=== PATIENT | female | born 1955 | race Caucasian/White ===

== ENCOUNTER → 2016-08-10 | Outpatient (CLI) | payer OTHER, MEDICAID ==
--- NOTE | 2016-08-10 10:59 | DX ---
Bilateral femurs, 4 views each side. HISTORY: Bilateral thigh pain. FINDINGS: The femurs are normal in appearance bilaterally, without evidence of fracture or periostiti s. Hip joint spaces appear symmetric and normal. IMPRESSION: Unremarkable bilateral femur radiographs.
--- NOTE | 2016-08-10 11:01 | DX ---
Bilateral knees, 5 views each side. HISTORY: Bilateral knee pain. FINDINGS: Both knees are normal in appearance. Joint spaces are maintained, and normal alignment is p resent. No fracture or joint effusion bilaterally. IMPRESSION: 1. Unremarkable bilateral knee radiographs.
== END ==
LOC: FIMAGING 09:23
PROVIDERS: ATTEND Registered Nurse
DX: M25.561 Pain in right knee (principal); M25.562 Pain in left knee; M79.604 Pain in right leg; M79.605 Pain in left leg

== ENCOUNTER → 2016-09-12 | Outpatient (CLI) | payer OTHER, MEDICAID | LOC: FCPNEURO 22:55 | PROVIDERS: ATTEND Student in an Organized Health Care Education/Training Program | DX: G47.33 Obstructive sleep apnea (adult) (pediatric) (principal); G47.31 Primary central sleep apnea; G47.36 Sleep related hypoventilation in conditions classified elsewhere ==

== ENCOUNTER → 2016-12-03 | Outpatient (CLI) | payer OTHER ==
[~2016-12-03] MED LIST: GADOBUTROL 10 ML VIAL IVP ONE
== END ==
LOC: FIMAGING 07:50
PROVIDERS: ATTEND Neurological Surgery
DX: M51.36 Other intervertebral disc degeneration, lumbar region (principal); M51.37 Other intervertebral disc degeneration, lumbosacral region; G95.9 Disease of spinal cord, unspecified; M48.54XA Collapsed vertebra, not elsewhere classified, thoracic region, initial encounter for fracture; M54.9 Dorsalgia, unspecified; K62.89 Other specified diseases of anus and rectum
CPT/HCPCS: 72156; 72157; 72158; A9585

== ENCOUNTER → 2016-12-21 | Outpatient (CLI) | payer OTHER | LOC: FIMAGING 11:11 | PROVIDERS: ATTEND Internal Medicine | DX: Z13.820 Encounter for screening for osteoporosis (principal); M85.80 Other specified disorders of bone density and structure, unspecified site ==

== ENCOUNTER 2017-01-14 18:27 | Emergency (ER) | payer OTHER ==
[2017-01-14 18:35] VITALS: PULSE 79; TEMP 98.1; O2SAT 94
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
[2017-01-14 20:28] VITALS: BP 145/79; RESP 16
== END 2017-01-14 20:28 | disposition home or self-care (01) ==
LOC: EDUNIT#
DX: S00.83XA Contusion of other part of head, initial encounter (principal); J45.909 Unspecified asthma, uncomplicated; F17.200 Nicotine dependence, unspecified, uncomplicated; Y04.0XXA Assault by unarmed brawl or fight, initial encounter; Y99.8 Other external cause status; Y93.89 Activity, other specified

== ENCOUNTER → 2017-01-28 | Outpatient (CLI) | payer OTHER | LOC: FIMAGING 07:19 | PROVIDERS: ATTEND Internal Medicine | DX: J98.4 Other disorders of lung (principal); F17.210 Nicotine dependence, cigarettes, uncomplicated ==

== ENCOUNTER → 2017-02-11 | Outpatient (CLI) | payer OTHER | LOC: FIMAGING 10:06 | PROVIDERS: ATTEND Psychiatry & Neurology Neurology | DX: D32.9 Benign neoplasm of meninges, unspecified (principal); S09.90XA Unspecified injury of head, initial encounter; Y04.8XXA Assault by other bodily force, initial encounter | CPT/HCPCS: 70543; 70551; A9585 ==

== ENCOUNTER → 2017-02-15 | Outpatient (CLI) | payer OTHER | LOC: FIMAGING 12:27 | PROVIDERS: ATTEND Internal Medicine | DX: Z12.2 Encounter for screening for malignant neoplasm of respiratory organs (principal); K76.0 Fatty (change of) liver, not elsewhere classified; Z87.891 Personal history of nicotine dependence; Z85.028 Personal history of other malignant neoplasm of stomach; Z85.841 Personal history of malignant neoplasm of brain ==

== ENCOUNTER 2017-06-07 06:31 | Inpatient (IN) | payer OTHER, MEDICAID ==
[2017-06-07] MEDS ORDERED: CEFUROXIME 1,500 MG in NS 50 ML IV ONE (06:39)
[2017-06-07] MEDS ORDERED: LR 1,000 ML IV ONE (06:40)
[2017-06-07] MEDS ORDERED: GADOBUTROL 10 ML VIAL IVP ONE (06:41)
--- NOTE | 2017-06-07 06:51 | PDANEPAE ---
ANE History of Present Illness presents for craniotomy for tumor excision - left frontal meningioma ANE Past Medical History - Cardiovascular History Hx Hypertension: No Hx Arrhythmias: Yes Hx Chest Pain: No Hx Coronary Artery / Peripheral Vascular Disease: No Hx CHF / Valvular Disease: Yes Cardiovascular History Comment: intermittent PAC'S - Pulmonary History Hx COPD: No Hx Asthma/Reactive Airway Disease: No Hx Recent Upper Respiratory Infection: No Hx Oxygen in Use at Home: No Hx Sleep Apnea: No Sleep Apnea Screening Result - Last Documented: Positive Pulmonary History Comment: SMOKES A PACK A DAY. - Neurologic History Hx Cerebrovascular Accident: No Hx Seizures: No Hx Dementia: No - Endocrine History Hx Diabetes: No Obesity: no Endocrine History Comment: HYPOTHYROID - Renal History Hx Renal Disorders: No - Liver History Hx Hepatic Disorders: Yes Hepatic History Comment: FATTY LIVER - Neurological & Psychiatric Hx Hx Neurological and Psychiatric Disorders: Yes Neurological / Psychiatric History Comment: DEPRESSION - Cancer History Hx Cancer: No Cancer History Comment: METAPLASIA IN STOMACH - Congenital Disorder History Hx Congenital Disorders: No - GI History GERD: severe Hx Gastrointestinal Disorders: Yes Gastrointestinal History Comment: SEVERE REFLUX, INTERMITTENT IBS - Other Health History Other Health History: LOW IRON - Chronic Pain History Chronic Pain: Yes - Surgical History Prior Surgeries: benjie 2014 ANE Review of Systems Review of systems is: negative Review of Systems: - Exercise capacity METS (RN): 4 METS ANE Patient History - Allergies Allergies/Adverse Reactions: meperidine HCl [From Demerol] Allergy (Severe, Verified 01/14/17 18:33) Other-Enter Comments morphine [Morphine] Allergy (Severe, Verified 01/14/17 18:33) Other-Enter Comments Sulfa (Sulfonamide Antibiotics) Allergy (Severe, Verified 01/14/17 18:33) Rash levorphanol Allergy (Mild, Verified 04/17/17 18:22) VOMITING/DIARRHEA metronidazole [From Flagyl] Allergy (Mild, Verified 01/14/17 18:33) Penicillins Allergy (Unknown, Verified 01/14/17 18:33) Rash methadone Allergy (Verified 06/07/17 06:54) - Home Medications Home medications: home medication list seen and reviewed Home Medications: DULoxetine [Cymbalta] 30 mg PO HS 12/16/13 [Last Taken 06/06/17] Multivitamins [Multivitamin (*)] 1 each PO DAILY 12/16/13 [Last Taken 06/01/17] [place]-3 Fatty Acids [Fish Oil 1000 mg (*)] 1,000 mg PO DAILY 12/16/13 [Last Taken 06/02/17] Diazepam [Valium 10 MG (*)] 10 mg PO HS 01/16/14 [Last Taken 01/17/14] Nicotine [Nicoderm Cq 21 mg (*)] 21 mg TD DAILY 01/16/14 [Last Taken 06/06/17] Albuterol Hfa Anes Only [Proair Hfa Icu (*)] 2 puffs IH DAILY PRN 04/17/17 [ Last Taken Unknown] Buprenorphine HCl [Belbuca] 75 mcg SL BID 04/17/17 [Last Taken 06/06/17] Dexlansoprazole [Dexilant] 60 mg PO DAILY 04/17/17 [Last Taken 06/06/17] Diazepam [Valium 5 MG (*)] 5 mg PO DAILY AT 2PM 04/17/17 [Last Taken 06/06/17] Dicyclomine [Bentyl 10 MG (*)] 20 mg PO QID 04/17/17 [Last Taken 06/06/17] Herbals/Supplements -Info Only 1 ea PO DAILY 04/17/17 [Last Taken 05/31/17] Ketorolac Tromethamine [KETOROLAC TROMETHAMINE] 60 mg IM Q7D 04/17/17 [Last Taken 05/24/17] Levothyroxine [Synthroid 150 mcg (*)] 150 mcg PO DAILY06 04/17/17 [Last Taken ] OLANZapine [OLANZapine (*)] 1.7 mg PO DAILY 04/17/17 [Last Taken 06/06/17] Ondansetron Odt [Zofran Odt 4 mg (*)] 4 mg PO Q4 PRN 04/17/17 [Last Taken ] Promethazine HCl [Phenergan 25mg (*)] 25 mg PO DAILY PRN 04/17/17 [Last Taken ] oxyCODONE IR [Oxycodone Ir (*)] 5 mg PO 15 04/17/17 [Last Taken 06/07/17] oxyCODONE IR [Oxycodone Ir (*)] 15 mg PO 04/17/17 [Last Taken 06/07/17] oxyCODONE IR [Oxycodone Ir (*)] 30 mg PO ,04/17/17 [Last Taken 06/07/17] - Anes Hx Anes Hx: no prior problems - Smoking Hx Smoking Status: Current every day smoker - Family Anes Hx Family Hx Anesthesia Complications: none ANE Labs/Vital Signs - Labs Result Diagrams: 06/07/17 06:39 06/07/17 06:39 - Vital Signs Height: 167.64 cm Weight: 74.843 kg ANE Physical Exam - Airway Neck exam: FROM Mallampati Score: Class 2 Mouth exam: dentures - Pulmonary Pulmonary: no respiratory distress - Cardiovascular Cardiovascular: regular rate and rhythym - ASA Status ASA Status: III ANE Anesthesia Plan Anesthesia Plan: general endotracheal anesthesia Lines/Monitors: arterial line Urgent/Emergent Case: Guero fragoso completed preop but documented later for safe timely pt care
[2017-06-07] MEDS ORDERED: BUPIVACAINE 0.25% 30 ML SDV ONE (09:11)
[2017-06-07] MEDS ORDERED: BACITRACIN ZINC 14.2 GM OINTTUBE TP ONE (09:11)
[2017-06-07] MEDS ORDERED: GENTAMICIN SULFATE 80 MG/2 ML VIAL ONE ×2 (09:11→11:44)
[2017-06-07] MEDS ORDERED: AVITENE POWDER 1 GM JAR TP ONE (09:11)
[2017-06-07] MEDS ORDERED: POVIDONE-IODINE 30 GM OINTTUBE TP ONE (09:14)
[2017-06-07] MEDS ORDERED: THROMBIN (BOVINE) 5,000 UNIT VIAL TP ONE (09:14)
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
[2017-06-07] MEDS ORDERED: fentaNYL 100 MCG/2 ML INJ ONE ×6 (09:22→13:41)
[2017-06-07] MEDS ORDERED: ROCURONIUM 100 MG/10 ML VIAL ONE ×2 (09:25→12:00)
[2017-06-07] MEDS ORDERED: PROPOFOL/EMULSION 500 MG/50 ML BOTTLE IV ONE ×2 (09:26→11:33)
[2017-06-07] MEDS ORDERED: PROPOFOL 200 MG/20 ML VIAL ONE ×2 (09:26→10:14)
[2017-06-07] MEDS ORDERED: LIDOCAINE 2% 5 ML SDV ONE (09:27)
[2017-06-07] MEDS ORDERED: REMIFENTANIL HCL 1 MG VIAL ONE ×2 (09:28→11:21)
[2017-06-07] MEDS ORDERED: NS IV ONE (09:30)
[2017-06-07] MEDS ORDERED: NICARDIPINE IV ONE (09:30)
[2017-06-07 10:16] LABS: % IMMATURE GRANULYOCYTES 0.3 % (0.0-1.1); ABSOLUTE IMMATURE GRANULOCYTES 0.02 10^3/uL (0.00-0.10); ADD DIFF? NO; ADD MORPH? NO; ADD SCAN? NO; ATYPICAL LYMPHOCYTE FLAG 0 (0-99); FRAGMENT RBC FLAG 0 (0-99); HEMATOCRIT 40.6 % (38.0-47.0); LEFT SHIFT FLG 0 (0-99); LIPEMIA HEMOLYSIS FLAG 90 (0-99); MEAN CELL HEMOGLOBIN 30.8 pg (27.9-34.1); MEAN CELL HEMOGLOBIN CONCENTR. 34.5 g/dL (32.4-36.7); MEAN CELL VOLUME 89.2 fL (81.5-99.8); MEAN PLATELET VOLUME 9.6 fL (8.7-11.7); PLATELET CLUMPS FLAG 10 (0-99); PLATELET COUNT 262 10^3/uL (150-400); RED BLOOD CELL COUNT 4.55 10^6/uL (4.18-5.33); RED CELL DISTRIBUTION WIDTH 14.4 % (11.5-15.2)
[2017-06-07 10:34] LABS: ANION GAP 14 mEq/L (8-16); CARBON DIOXIDE 22 mEq/l (22-31); CHLORIDE 105 mEq/L (97-110); CREATININE 0.8 mg/dL (0.6-1.0); GLOMERULAR FILTRATION RATE > 60; GLUCOSE 101 mg/dL (70-100); POTASSIUM 4.1 mEq/L (3.5-5.2); SODIUM 141 mEq/L (134-144)
[2017-06-07] MEDS ORDERED: HYDROmorphONE/DILAUDID 2 MG/ML INJ ONE (10:34)
[2017-06-07 10:37] LABS: APTT 29.9 SEC (23.0-38.0); INR 1.02 (0.83-1.16); PROTIME(PATIENT) 13.3 SEC (12.0-15.0)
[2017-06-07] MEDS ORDERED: fentaNYL 250 MCG/5 ML INJ ONE (10:52)
[2017-06-07] MEDS ORDERED: MANNITOL 20% 100 GM/500 ML BAG IV ONE (11:40)
[2017-06-07] MEDS ORDERED: ONDANSETRON 4 MG/2 ML VIAL IVP PRN ×2 (12:36→12:57)
[2017-06-07] MEDS ORDERED: fentaNYL 100 MCG/2 ML INJ IVP PRN (12:36)
[2017-06-07] MEDS ORDERED: NALOXONE HCL 0.4 MG/ML INJ IVP PRN (12:36)
[2017-06-07] MEDS ORDERED: LABETALOL HCL 50 MG/10 ML SYR IVP PRN (12:36)
[2017-06-07] MEDS ORDERED: NS 500 ML IV PRN (12:36)
[2017-06-07] MEDS ORDERED: ACETAMINOPHEN 500 MG TAB PO PRN (12:36)
[2017-06-07] MEDS ORDERED: HYDROmorphONE/DILAUDID 1 MG/ML INJ IVP PRN (12:36)
[2017-06-07] MEDS ORDERED: ALBUTEROL 3 ML DEYVIAL IH PRN (12:36)
[2017-06-07] MEDS ORDERED: ALBUTEROL 200 PUFFS/18 GM MDI IH PRN (12:54)
[2017-06-07] MEDS ORDERED: BISACODYL 10 MG SUPP PR PRN (12:57)
[2017-06-07] MEDS ORDERED: MAGNESIUM HYDROXIDE 30 ML UDCUP PO PRN (12:57)
[2017-06-07] MEDS ORDERED: PROMETHAZINE HCL 25 MG/ML INJ IVP PRN (12:57)
[2017-06-07] MEDS ORDERED: niCARdipine/NACL 200 ML IV PRN (12:57)
[2017-06-07] MEDS ORDERED: LACTULOSE 20 GM/30 ML UDCUP PO PRN (12:57)
[2017-06-07] MEDS ORDERED: ACETAMINOPHEN 325 MG TAB PO PRN (12:57)
[2017-06-07] MEDS ORDERED: MAG HYDROX/AL HYDROX/SIMETH 30 ML UDCUP PO PRN (12:57)
[2017-06-07] MEDS ORDERED: POLYETHYLENE GLYCOL 3350 17 GM PKT PO PRN (12:57)
[2017-06-07] MEDS ORDERED: *MD ORDERING ONLY-DEXAMETHASONE TAPER IVP/PO SCH (13:15)
[2017-06-07] MEDS ORDERED: LABETALOL HCL 50 MG/10 ML SYR ONE (13:16)
--- NOTE | 2017-06-07 13:36 | POSTOPPROG ---
Post Op Note Date of Operation: 06/07/17 Surgeon: Joan Pepe Beadworker: Eli Rodriguez PA-C Anesthesia: GET(General Endotracheal) Pre-op Diagnosis: Brain mass Post-op Diagnosis: Brain mass Procedure: Craniotomy for resection of brain mass Inf/Abcess present in the surg proc area at time of surgery?: No Depth: Deep Incisional (Fascial) EBL: 50-100 Plan Plan: 61 yo female s/p left craniotomy for resection of brain mass, preliminary path is meningioma - neuro checks every hour - maintain SBP < 140 - keppra x 1 week - decadron taper as ordered - GRANT drain subgaleal, maintain compression - PT/OT - postop MRI brain in am Exam Awake. Alert. PERRL Following commands Strength full at 5/5 Sensation intact
[2017-06-07] MEDS ORDERED: HYDROmorphONE/DILAUDID 1 MG/ML INJ ONE (13:41)
[2017-06-07] MEDS: HYDROmorphONE/DILAUDID 1 MG/ML INJ IVP PRN ×2 (14:54→17:54)
--- NOTE | 2017-06-07 15:31 | ASMTCMCOM ---
CM Note CM Note Notes: Patient admitted for brain tumor resection; she is s/p L craniotomy and recovering in the ICU. PT/OT evals are ordered and pending, and she is having q1hr neuro checks. Caroline García, patient's cousin, is her MDPOA. Her discharge needs are TBD at this time. CM will follow. Date Signed: 06/07/2017 03:31 PM Electronically Signed By:Tia Ramos RN
[2017-06-07] MEDS: DICYCLOMINE 10 MG CAP PO SCH ×2 (15:41→23:11)
--- NOTE | 2017-06-07 15:51 | POSTANESTH ---
Post Anesthetic Evaluation Cardiovascular Status: Normal, Stable Respiratory Status: Normal, Stable Level of Consciousness/Mental Status: Can Participate in Eval Pain Control: Adequate, Prn Tx Ordered Nausea/Vomiting Control: Adequate, Prn Tx Ordered Complications Possibly Related to Anesthesia: None Noted
[2017-06-07] MEDS: NS W/ 20 KCl/L 1,000 ML IV SCH (16:58)
[2017-06-07] MEDS: DEXAMETHASONE 4 MG/ML VIAL IVP SCH (17:51)
[2017-06-07] MEDS: CEFUROXIME 1,500 MG in NS 50 ML IV SCH (17:51)
--- NOTE | 2017-06-07 17:57 | GOP ---
[f rep st] OPERATIVE REPORT DATE OF OPERATION: 06/07/2017 SURGEON: Joan Pepe DO NEUROSURGEON: Joan Pepe D.O. MARKETING PROJECT MANAGER: Eli Rodriguez P.A.-C. PREOPERATIVE DIAGNOSIS: Right frontal meningioma. POSTOPERATIVE DIAGNOSIS: Right frontal meningioma. PROCEDURE PERFORMED: Bicoronal craniotomy flap, right frontal craniotomy, resection of meningioma. FINDINGS: SPECIMENS: To pathology. Prelim path is benign meningioma. ESTIMATED BLOOD LOSS: 100 mL. INDICATIONS: This is a 61-year-old female with a large right frontal meningioma, who was offered alexy atment options. Elected to move forward with surgical resection. DESCRIPTION OF PROCEDURE: She was identified. Consented. Sites were marked. Brought to the operating room. Anesthetized under general endotracheal tube anesthesia. The head was placed in a P[place]it hea d aragon to 80 pounds of pressure. Her stealth stereotactic scan was registered to the Stealth frame, and the bifrontal incision was marked using the preoperative plan. Hair was clipped with the OR clip pers. She was prepped and draped in the usual sterile fashion. Incision was anesthetized with 0.5% Ma rcaine with epinephrine. Incision was made with a 10 blade. Hemostasis was obtained with Deepa clips and bipolar cautery. We d issected through the temporalis fascia with the Bovie and then reflected the flap anteriorly, elevati ng the periosteum with the periosteal elevator and placing a scalp flap under the flap before retract ing it back to a Anne bar. We then marked the midline both stereotactically and otherwise, and appro ximately 2 cm off midline posteriorly marked a juliana hole posterior to the tumor and marked out anteri or and posterior tumor margins based on the preoperative plan. We then performed a 14 mm juliana hole an d waxed this. We then, with the router, extended this in a semicircular fashion out laterally, removi ng the bone flap. We then placed dural tack-up stitches using the wire pass and 4-0 Nurolon. Then rec hecking that we had an appropriate opening lateral to the tumor, we tented the dura up with 4-0 Nurol on, opened it with a 15 blade, and then extended this with an 11 blade. As we began to reflect the du ra more medially, it became very apparent that the tumor capsule was not well defined as one would ty pically expect and was very, very adherent to the underlying brain. Staying on the tumor capsule side, we coagulated the arachnoid and cut with micro scissors, and then opened the tumor capsule sending biopsy. Then using this SONOPET to core out the center of the tumor capsule, we then circumferentially began to resect capsule from brain. Again, this was exceedingly ad herent so there was some obvious cortical disruption from the tumor. There were no draining veins or feeding vessels that were taken at this point. As we got more medial, we did get some cerebral edema. This was treated effectively with mannitol, and by closure the brain was supple again. Once we had c ored out the center and completely resected the tumor capsule, with the exception of along the superi or dural margin along the sagittal sinus, we then used the stealth to verify we had resected all the tumor as well as direct visualization. We then coagulated the dura underneath 2 cm leading up to the superior sagittal sinus, but did not coagulate the sinus using stealth to verify this. We then copiously irrigated with gentamicin infused saline. Once meticulous hemostasis had been obtai roxanna with Gelfoam and Avitene, we then laid Surgicel down along the brain, as I said the brain was rel axed again. Prior to closing, we replace the dura with DuraGen and replaced the bone flap with a Synt hes plate and 5 mm screws. We then copiously irrigated with another liter of gentamicin infused salin e, trocar to drain out posteriorly placed in the sub galea space. Closed the temporalis fascia with 2 -0 Vicryl pop-offs. The galea, which was not high quality given that she was a smoker, was closed wit h 2-0 Vicryl pop-offs. The skin was closed with 3-0 running nylon. The wound was dressed with bacitra david and Telfa stapled down. Removed from the [place] head well puller. Tolerated the procedure well. FLUIDS REPLACED: 2.5 L crystalloid and 50 of mannitol. URINE OUTPUT: Not recorded. DRAINS: One J-P in the subgaleal space to bulb suction. COMPLICATIONS: Not technically a complication; however, tumor was particularly adherent to brain cau sing some mild cortical contusion when the capsule and some cerebral edema, which did reso lve with mannitol. /[id number]/MODL
[2017-06-07] MEDS: Buprenorphine Hcl [Belbuca] 75 MCG SL SCH (18:25)
[2017-06-07] MEDS ORDERED: DULoxetine 20 MG CAP PO SCH (21:00)
[2017-06-07] MEDS: DIAZEPAM 5 MG TAB PO PRN (21:44)
[2017-06-07] MEDS: SENNOSIDES/DOCUSATE SODIUM TAB PO SCH (21:44)
[2017-06-07] MEDS: levETIRAcetam 500 MG TAB PO SCH (21:44)
[2017-06-07] MEDS: DULoxetine 30 MG CAP PO SCH (21:48)
--- NOTE | 2017-06-07 21:48 | GCON ---
[f rep st] CONSULTATION [employer] AGENT CONSULTATION. DATE OF CONSULTATION: 06/07/2017 REASON FOR ADMISSION: Status post craniotomy. HISTORY OF PRESENT ILLNESS: The patient is a 61-year-old, white female with a past medical history i ncluding chronic pain, hypothyroidism, tobacco abuse. She was examined postoperatively preceding a c raniotomy for resection of a mass felt to be a meningioma. She is currently resting comfortably, but somewhat somnolent. All history is gleaned from the medical record. Prior to surgery, she was comp laining of nausea. PAST MEDICAL HISTORY: Includes hypothyroidism, chronic pain, stomach cancer, asthma, depression, anx iety. ALLERGIES: Extensive allergies, including meperidine, morphine, sulfa, Flagyl, penicillin. MEDICATIONS: At home include atenolol, levothyroxine, Cymbalta, multivitamins, Valium, Nexium, NicoD erm, Ultram, baclofen, Dilaudid, Ultram, Zyprexa. SOCIAL HISTORY: A current smoker. Her family is at the bedside. She has good family support. PHYSICAL EXAM: VITAL SIGNS: Blood pressure is 134/73, pulse 76, respirations 12. She is afebrile. Oxygen saturation 93% on 3 L. GENERAL: She is a mildly overweight, 61-year-old, white female who i s resting comfortably in no acute distress. HEENT: Eyes are PERRLA, EOMI. Throat shows no erythema or tonsillar hypertrophy. NECK: Supple. There is no cervical adenopathy. HEART: Regular rate an d rhythm with a 2/6 systolic murmur at left sternal border without radiation. LUNGS: Diminished indu ath sounds. Mild prolongation of expiratory phase, but there is no wheeze. ABDOMEN: Soft, nontende r. Bowel sounds are present. EXTREMITIES: No clubbing, cyanosis, or edema. LABORATORIES: White count 6.5, hemoglobin 14, hematocrit 40, platelet count 262. INR is 1.02. Sodi um 141, potassium 4.1, chloride 105, CO2 is 22, BUN 11, creatinine 0.8, glucose is 101. IMPRESSION: 1. Status post craniotomy for removal of a tumor felt to be a meningioma. 2. Chronic pain. 3. History of asthma. 4. Hypothyroidism. 5. Anxiety and depression. RECOMMENDATIONS: 1. Adequate pain control. 2. DVT and PE prophylaxis. Holding anticoagulation for now. 3. Stress ulcer prophylaxis. 4. PT and OT. /[id number]/MODL
[2017-06-07] MEDS: DICYCLOMINE 20 MG TAB PO SCH (21:49)
[2017-06-07] MEDS: oxyCODONE IR 15 MG TAB PO PRN (21:52)
[2017-06-07] MEDS: OLANZapine 5 MG TAB PO SCH (21:53)
[2017-06-08] MEDS: DEXAMETHASONE 4 MG/ML VIAL IVP SCH ×3 (00:21→12:04)
[2017-06-08] MEDS: CEFUROXIME 1,500 MG in NS 50 ML IV SCH (02:10)
[2017-06-08] MEDS: NS W/ 20 KCl/L 1,000 ML IV SCH (02:16)
[2017-06-08 03:57] LABS: % IMMATURE GRANULYOCYTES 0.3 % (0.0-1.1); ABSOLUTE IMMATURE GRANULOCYTES 0.03 10^3/uL (0.00-0.10); ADD DIFF? NO; ADD MORPH? NO; ADD SCAN? NO; ATYPICAL LYMPHOCYTE FLAG 0 (0-99); FRAGMENT RBC FLAG 0 (0-99); HEMATOCRIT 38.2 % (38.0-47.0); HEMOGLOBIN 12.8 g/dL (12.6-16.3); LEFT SHIFT FLG 0 (0-99); LIPEMIA HEMOLYSIS FLAG 80 (0-99); MEAN CELL HEMOGLOBIN 30.7 pg (27.9-34.1); MEAN CELL HEMOGLOBIN CONCENTR. 33.5 g/dL (32.4-36.7); MEAN CELL VOLUME 91.6 fL (81.5-99.8); MEAN PLATELET VOLUME 9.8 fL (8.7-11.7); PLATELET CLUMPS FLAG 0 (0-99); PLATELET COUNT 264 10^3/uL (150-400); RED BLOOD CELL COUNT 4.17 10^6/uL (4.18-5.33); RED CELL DISTRIBUTION WIDTH 14.6 % (11.5-15.2)
[2017-06-08 04:36] LABS: ANION GAP 10 mEq/L (8-16); CALCIUM 8.1 mg/dL (8.5-10.4); CARBON DIOXIDE 22 mEq/l (22-31); CHLORIDE 112 mEq/L (97-110); CREATININE 0.7 mg/dL (0.6-1.0); GLOMERULAR FILTRATION RATE > 60; GLUCOSE 137 mg/dL (70-100); POTASSIUM 4.3 mEq/L (3.5-5.2); SODIUM 144 mEq/L (134-144)
[2017-06-08] MEDS: DICYCLOMINE 20 MG TAB PO SCH ×4 (05:55→20:14)
[2017-06-08] MEDS: LEVOTHYROXINE 150 MCG TAB PO SCH (05:55)
[2017-06-08] MEDS: oxyCODONE IR 15 MG TAB PO PRN (06:11)
[2017-06-08] MEDS ORDERED: oxyCODONE IR 15 MG TAB PO PRN ×2 (07:33→15:39)
--- NOTE | 2017-06-08 07:37 | NEUSURGPN ---
Date of Surgery: 06/07/17 Post Op Day: 1 Assessment/Plan: Assessment: 61 yo female s/p left craniotomy for resection of brain mass, preliminary path is meningioma POD #1 Plan: -neuro checks every 1-2 hrs -maintain SBP < 140 -pt feeling fine this am except for her ongoing rectal pain that she takes 15- 30 mg of Oxycodone 2-3 times per day-written for this medication -keppra x 1 week -decadron taper as ordered -GRANT drain subgaleal, maintain compression -PT/OT -postop MRI brain pending this am -warning signs given -call NS with any changes or issues Subjective: No new complaints or concerns. No f/c/n/v/d. No neck/chest/abd or gu complaints. Objective: Awake. Alert. PERRLA EOMI no droop Following commands Strength full at 5/5 Sensation intact Neuro Check Frequency: per routine Urinary Catheter in Place: No - Physician Discussed Patient with : My Neurosurgery Physical Exam - Vitals, I&O, Labs I and O 06/07/17 06/08/17 06/09/17 05:59 05:59 05:59 Intake Total 4115 Output Total 2890 Balance 1225 Weight 74.843 kg Intake: Oral (ml) 120 IV Intake (ml) 2600 IV Infused (ml) 1395 Cefuroxime 1,500 mg In Ns 50 50 ml @ 200 mls/hr IV ONCALL ONE Rx#:[id number] NS W/ 20 KCl/L 1,000 ml @ 1345 100 mls/hr IV CONT ESTELLA Rx#:[id number] Output: Urine (ml) 2650 Catheter 2650 Estimated Blood Loss (ml) 100 GRANT Drain Output (ml) 140 Head Tariq Ordonez 140 Vital Signs Temp Pulse Resp BP Pulse Ox 36.6 C 91 19 124/66 H 92 06/08/17 04:00 06/08/17 06:00 06/08/17 06:00 06/08/17 06:00 06/08/17 06:00 Laboratory Results 06/08/17 03:50 06/08/17 03:50 ICD10 Worksheet Patient Problems: Problems Problem Status Onset Chest pain at rest Acute Coronary atherosclerosis Acute Gastroenteritis Acute Hiatal hernia with obstruction but no gangrene Acute
[2017-06-08] MEDS: levETIRAcetam 500 MG TAB PO SCH ×2 (08:08→20:14)
[2017-06-08] MEDS: MULTIVITAMINS 1 EACH TAB PO SCH (08:09)
[2017-06-08] MEDS: SENNOSIDES/DOCUSATE SODIUM TAB PO SCH ×2 (08:09→20:14)
[2017-06-08] MEDS: NICOTINE 21 MG/24 HR PATCH TD SCH (08:10)
--- NOTE | 2017-06-08 08:40 | PDINTPN ---
Farm Crew Member Progress Note Assessment/Plan: Assessment: * Status post craniotomy for meningioma * Chronic pain * Asthma * Hypothyroid * Anxiety depression Plan: [employer] Continue pain control PT/OT Out of bed Subjective: Resting comfortably. Pain currently controlled. Objective: Vital Signs Temp Pulse Resp BP Pulse Ox 36.6 C 91 19 124/66 H 92 06/08/17 04:00 06/08/17 06:00 06/08/17 06:00 06/08/17 06:00 06/08/17 06:00 Laboratory Results 06/08/17 03:50 06/08/17 03:50 06/07/17 06/08/17 06/09/17 05:59 05:59 05:59 Intake Total 4115 Output Total 2890 Balance 1225 PT 13.3 SEC (12.0-15.0) 06/07/17 06:39 INR 1.02 (0.83-1.16) 06/07/17 06:39 Physical Exam - Physical Exam General Appearance: WD/WN, alert, no apparent distress EENT: PERRL/EOMI Neck: non-tender, supple Respiratory: chest non-tender, lungs clear, normal breath sounds Cardiac/Chest: normal peripheral pulses, regular rate, rhythm Peripheral Pulses: 2+: carotid (R), carotid (L), femoral (R), femoral (L), dorsalis-pedis (R), dorsalis-pedis (L) Abdomen: normal bowel sounds, non-tender, soft Pelvic Exam: deferred Rectal: deferred Skin: normal color Extremities: normal range of motion, non-tender, normal inspection, normal capillary refill Neuro/Psych: alert ICD10 Worksheet Patient Problems: Problems Problem Status Onset Chest pain at rest Acute Coronary atherosclerosis Acute Gastroenteritis Acute Hiatal hernia with obstruction but no gangrene Acute
[2017-06-08] MEDS ORDERED: OLANZapine 5 MG TAB PO SCH (09:00)
[2017-06-08] MEDS ORDERED: PANTOPRAZOLE SODIUM 40 MG TAB PO SCH ×2 (09:00→21:00)
[2017-06-08] MEDS ORDERED: GADOBUTROL 10 ML VIAL IVP ONE (09:47)
[2017-06-08] MEDS: Buprenorphine Hcl [Belbuca] 75 MCG SL SCH ×2 (10:39→20:13)
--- NOTE | 2017-06-08 15:29 | ASMTCMCOM ---
CM Note CM Note Notes: Spoke with patient today who confirmed she has gotten home health services from [facility] in the past. Patient states she does not want any rehab but does want to return home with home health care. Patient to get an MRI today. Left a message for [employer] [phone]. CM will follow. Date Signed: 06/08/2017 03:28 PM Electronically Signed By:Catalina Knight LCSW
[2017-06-08] MEDS: DEXILANT 60 MG PO SCH (15:47)
[2017-06-08] MEDS: DEXAMETHASONE 4 MG TAB PO SCH (20:14)
[2017-06-08] MEDS: DULoxetine 30 MG CAP PO SCH (20:14)
[2017-06-08] MEDS: OLANZapine 5 MG TAB PO SCH (20:14)
[2017-06-08] MEDS: DIAZEPAM 5 MG TAB PO PRN (20:17)
[2017-06-09] MEDS: DICYCLOMINE 20 MG TAB PO SCH (05:43)
[2017-06-09] MEDS: LEVOTHYROXINE 150 MCG TAB PO SCH (05:43)
[2017-06-09 07:43] VITALS: BP 110/52; PULSE 72; RESP 18; TEMP 98.3; O2SAT 92
--- NOTE | 2017-06-09 08:04 | SOAPPROG ---
SOAP Progress Note Assessment/Plan: Assessment: 61 yo F POD #2 craniotomy for resection of left frontal lesion Plan: stable and doing well overall :) PT/OT/ST GRANT removed today on decadron on keppra discharge home with [facility] today please call with neuro changes discussed with Dr Pepe 06/09/17 08:02 Subjective: patient has mild headache, no N/V. No weakness. Objective: Vital Signs Temp Pulse Resp BP Pulse Ox 36.8 C 72 18 110/52 L 92 06/09/17 07:35 06/09/17 07:35 06/09/17 07:35 06/09/17 07:35 06/09/17 07:35 Laboratory Results 06/08/17 03:50 06/08/17 03:50 06/08/17 06/09/17 06/10/17 05:59 05:59 05:59 Intake Total 4115 1507 Output Total 2890 87 Balance 1225 1420 PT 13.3 SEC (12.0-15.0) 06/07/17 06:39 INR 1.02 (0.83-1.16) 06/07/17 06:39 AAOx4, +FC PERRL, EOMI, no facial droop LEEANNE x 4 + light touch C/D/I ICD10 Worksheet Patient Problems: Problems Problem Status Onset Chest pain at rest Acute Coronary atherosclerosis Acute Gastroenteritis Acute Hiatal hernia with obstruction but no gangrene Acute
--- NOTE | 2017-06-09 08:34 | PDINTPN ---
Webbing Supervisor Progress Note Assessment/Plan: Assessment: * Status post craniotomy for meningioma * Chronic pain-controlled * Asthma * Hypothyroid * Anxiety depression Plan: Home today Subjective: Up in chair. Comfortable. Objective: Vital Signs Temp Pulse Resp BP Pulse Ox 36.8 C 72 18 110/52 L 92 06/09/17 07:35 06/09/17 07:35 06/09/17 07:35 06/09/17 07:35 06/09/17 07:35 Laboratory Results 06/08/17 03:50 06/08/17 03:50 06/08/17 06/09/17 06/10/17 05:59 05:59 05:59 Intake Total 4115 1507 Output Total 2890 87 Balance 1225 1420 PT 13.3 SEC (12.0-15.0) 06/07/17 06:39 INR 1.02 (0.83-1.16) 06/07/17 06:39 Physical Exam - Physical Exam General Appearance: alert, no apparent distress EENT: PERRL/EOMI, normal ENT inspection Neck: non-tender Respiratory: prolonged expiration, No respiratory distress, No wheezing Cardiac/Chest: normal peripheral pulses, regular rate, rhythm Peripheral Pulses: 2+: carotid (R), carotid (L), femoral (R), femoral (L), dorsalis-pedis (R), dorsalis-pedis (L) Abdomen: normal bowel sounds, non-tender, soft Pelvic Exam: deferred Skin: normal color, warm/dry Extremities: normal range of motion, non-tender, normal inspection, normal capillary refill ICD10 Worksheet Patient Problems: Problems Problem Status Onset Chest pain at rest Acute Coronary atherosclerosis Acute Gastroenteritis Acute Hiatal hernia with obstruction but no gangrene Acute
[2017-06-09] MEDS: NICOTINE 21 MG/24 HR PATCH TD SCH (09:26)
[2017-06-09] MEDS: DEXAMETHASONE 4 MG TAB PO SCH (09:27)
[2017-06-09] MEDS: SENNOSIDES/DOCUSATE SODIUM TAB PO SCH (09:27)
[2017-06-09] MEDS: levETIRAcetam 500 MG TAB PO SCH (09:27)
[2017-06-09] MEDS: MULTIVITAMINS 1 EACH TAB PO SCH (09:27)
[2017-06-09] MEDS: Buprenorphine Hcl [Belbuca] 75 MCG SL SCH (09:28)
[2017-06-09] MEDS: DEXILANT 60 MG PO SCH (09:28)
--- NOTE | 2017-06-09 10:58 | PDIAF ---
- Diagnosis Code Status: Full Code - Medication Management Discharge Medications: Medications to Continue on Transfer DULoxetine [Cymbalta] 30 mg PO HS 12/16/13 [Last Taken 06/06/17] Multivitamins [Multivitamin (*)] 1 each PO DAILY 12/16/13 [Last Taken 06/01/17] Kellogg-3 Fatty Acids [Fish Oil 1000 mg (*)] 1,000 mg PO DAILY 12/16/13 [Last Taken 06/02/17] Diazepam [Valium 10 MG (*)] 10 mg PO HS 01/16/14 [Last Taken 01/17/14] Nicotine [Nicoderm Cq 21 mg (*)] 21 mg TD DAILY 01/16/14 [Last Taken 06/06/17] Albuterol Hfa Anes Only [Proair Hfa Icu (*)] 2 puffs IH DAILY PRN 04/17/17 [ Last Taken Unknown] Buprenorphine HCl [Belbuca] 75 mcg SL BID 04/17/17 [Last Taken 06/06/17] Dexlansoprazole [Dexilant] 60 mg PO DAILY 04/17/17 [Last Taken 06/06/17] Diazepam [Valium 5 MG (*)] 5 mg PO DAILY AT 2PM 04/17/17 [Last Taken 06/06/17] Dicyclomine [Bentyl 10 MG (*)] 20 mg PO QID 04/17/17 [Last Taken 06/06/17] Herbals/Supplements -Info Only 1 ea PO DAILY 04/17/17 [Last Taken 05/31/17] Ketorolac Tromethamine [KETOROLAC TROMETHAMINE] 60 mg IM Q7D 04/17/17 [Last Taken 05/24/17] Levothyroxine [Synthroid 150 mcg (*)] 150 mcg PO DAILY06 04/17/17 [Last Taken ] OLANZapine [OLANZapine (*)] 1.7 mg PO DAILY 04/17/17 [Last Taken 06/06/17] Ondansetron Odt [Zofran Odt 4 mg (*)] 4 mg PO Q4 PRN 04/17/17 [Last Taken ] Promethazine HCl [Phenergan 25mg (*)] 25 mg PO DAILY PRN 04/17/17 [Last Taken ] oxyCODONE IR [Oxycodone Ir (*)] 5 mg PO 15 04/17/17 [Last Taken 06/07/17] oxyCODONE IR [Oxycodone Ir (*)] 15 mg PO 04/17/17 [Last Taken 06/07/17] oxyCODONE IR [Oxycodone Ir (*)] 30 mg PO 04/17/17 [Last Taken 06/07/17] Dexamethasone [Decadron 2 MG (*)] 2 mg PO DAILY tab 06/09/17 [Last Taken Unknown] Dexamethasone [Decadron 2 MG (*)] 2 mg PO Q12 tab 06/09/17 [Last Taken Unknown] levETIRAcetam [Keppra 500 mg (*)] 750 mg PO BID tab 06/09/17 [Last Taken Unknown] Discharge Medications: Refer to the Discharge Home Medication list for PRN reason. PICC Care - Routine: N/A - Orders Services needed: Registered Nurse, Physical Therapy Diet Recommendation: no restrictions on diet Diet Texture: Regular Texture Diet - Follow Up Care Current Providers and Referrals: Pratibha Bar MD [Primary Care Provider] -
--- NOTE | 2017-06-09 11:08 | ASMTCMCOM ---
ARMANI Schroeder CM Note Notes: Spoke with Mervat from [facility] and she clarified they are not a home health agency and they do not do any medical services. Mervat also stated patient is not an open client of theirs because the paperwork needs to be done and [facility] has to approve the reimbursement of services. Spoke with patient to clarify these issues and she is agreeable to [facility] health. [facility] was contacted and they have accepted her and will start with PT/nursing services and evaluate for what else she might need.Nursing report line number given to patient's nurse, Alberto who will call report. Spoke with Yamileth Dey, patient's [facility] who is following up on patient's application process with [employer]. (Yamileth's number, ). Awaiting discharge transfer of care summaries from Dr. LOMELI will follow. Date Signed: 06/09/2017 11:08 AM Electronically Signed By:Catalina Knight LCSW
--- NOTE | 2017-06-09 15:47 | ASDISCHSUM ---
Discharge Information Plan Status:Home with Home Health Medically Cleared to Leave:06/08/2017 Discharge Date:06/09/2017 11:10 AM CM D/C Disposition:Home Health Service ADT D/C Disposition:Home Health Service Projected Discharge Date:06/09/2017 12:00 AM Transportation at D/C: Discharge Delay Reason: Follow-Up Date:06/09/2017 12:00 AM Discharge Slot: Final Diagnosis: Placement Information Patient Contact Information Contact Name:DEANAALY Relationship:David Address: City: [facility] Phone: [facility] Code: Email: Financial Information Financial Class:Medicare Advantage Plans Primary Plan Desc:[facility] [employer] Primary Plan Number:[id number] Secondary Plan Desc:[employer] [place] Secondary Plan Number:[id number] Assessment Information [facility] CM Progress Note CM Note CM Note Notes: Patient admitted for brain tumor resection; she is s/p L craniotomy and recovering in the ICU. PT/OT evals are ordered and pending, and she is having q1hr neuro checks. Caroline García, patient's cousin, is her MDPOA. Her discharge needs are TBD at this time. CM will follow. Date Signed: 06/07/2017 03:31 PM Electronically Signed By:Tia Ramos RN [facility] CM Progress Note CM Note CM Note Notes: Spoke with patient today who confirmed she has gotten home health services from [facility] in the past. Patient states she does not want any rehab but does want to return home with home health care. Patient to get an MRI today. Left a message for [facility] [phone]. CM will follow. Date Signed: 06/08/2017 03:28 PM Electronically Signed By:Catalina Knight LCSW [facility] ARMANI Progress Note ARMANI Note ARMANI Note Notes: Spoke with Mervat from [facility] and she clarified they are not a home health agency and they do not do any medical services. Mervat also stated patient is not an open client of theirs because the paperwork needs to be done and [facility] has to approve the reimbursement of services. Spoke with patient to clarify these issues and she is agreeable to [facility] health. [facility] was contacted and they have accepted her and will start with PT/nursing services and evaluate for what else she might need.Nursing report line number given to patient's nurse, Alberto who will call report. Spoke with Yamileth Dey, patient's [facility] who is following up on patient's application process with [facility]. (Yamileth's number, ). Awaiting discharge transfer of care summaries from Dr. LOMELI will follow. Date Signed: 06/09/2017 11:08 AM Electronically Signed By:Catalina Knight LCSW Intervention Information
[2017-06-10] MEDS ORDERED: ENOXAPARIN 40 MG/0.4 ML SYR SC SCH (13:00)
[2017-06-10] MEDS ORDERED: DEXAMETHASONE 2 MG TAB PO SCH (21:00)
[2017-06-13] MEDS ORDERED: DEXAMETHASONE 2 MG TAB PO SCH (09:00)
== END 2017-06-09 11:10 | disposition home health service (06) | DRG 27 ==
LOC: F3N 06:31 → F2N 14:14
PROVIDERS: ADMIT Neurological Surgery; ATTEND Neurological Surgery
PROC: 00B00ZZ Excision of Brain, Open Approach (ICD-10-PCS; principal; 2017-06-07 09:45)
DX: D33.0 Benign neoplasm of brain, supratentorial (principal); G89.29 Other chronic pain; E03.9 Hypothyroidism, unspecified; J45.909 Unspecified asthma, uncomplicated; F41.9 Anxiety disorder, unspecified; F32.9 Major depressive disorder, single episode, unspecified; Z85.028 Personal history of other malignant neoplasm of stomach; Z72.0 Tobacco use
CPT/HCPCS: 92523-GN; 97116-GP; 97162-GP; 97166-GO; 97535-GO; A9585; C1713; G8978-GP-CI; G8979-GP-CI; G8980-GP-CI; G8987-GO-CJ; G8988-GO-CI; G8989-GO-CI; G8996-GN-CI; G8997-GN-CI; J0171; J0697; J1100; J1170; J2704; J3010

== ENCOUNTER → 2017-11-21 | Outpatient (CLI) | payer OTHER, MEDICAID | LOC: FIMAGING 07:14 | PROVIDERS: ATTEND Physician Assistant Surgical | DX: D33.0 Benign neoplasm of brain, supratentorial (principal); G93.89 Other specified disorders of brain | CPT/HCPCS: 70553; A9585 ==

== ENCOUNTER → 2019-01-17 | Outpatient (CLI) | payer OTHER, MEDICAID | LOC: FIMAGING 14:25 ==